=== PATIENT | male | born 1990 | race Caucasian/White ===

== ENCOUNTER 2019-10-01 20:44 | Emergency (ER) | payer OTHER ==
[~2019-10-01] VITALS: Ht 165.1 cm; Wt 77.1 kg
[2019-10-01 20:48] VITALS: BP 153/95
[2019-10-01] MEDS ORDERED: CHLO25CA10 PO (21:38)
--- NOTE | 2019-10-01 21:44 | NUR ---
pt states he is not suicidal he just wishes "not to be here" has no plan.
== END 2019-10-01 21:46 | disposition home or self-care (01) ==
LOC: ER 20:45
DX: F10.239 Alcohol dependence with withdrawal, unspecified (principal); F32.9 Major depressive disorder, single episode, unspecified; F17.200 Nicotine dependence, unspecified, uncomplicated; Z79.899 Other long term (current) drug therapy; Y90.9 Presence of alcohol in blood, level not specified
CPT/HCPCS: 99283